=== PATIENT | female | born 1965 | race Two or more races ===

== ENCOUNTER 2024-01-04 11:29 | Emergency (ER) | payer OTHER, SELFPAY ==
[2024-01-04 11:35] VITALS: BMI 26.9
[2024-01-04 11:38] VITALS: BP 154/104
[2024-01-04 12:00] VITALS: BP 157/110
--- NOTE | 2024-01-04 12:00 | ED.GENMED ---
History of Present Illness
General
Chief Complaint: Musculo-Skeletal Complaint
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
Exam Limitations: none
Time Seen by Provider: 01/04/24 11:33
Travel History
Have you had any contact with someone who has COVID-19?: Unable to Answer
Do you have any symptoms of coronavirus? Fever > 100 degrees, chills, cough, shortness of breath, sore throat, loss of taste or smell, muscle aches, or headache?: Unable to Answer
History of Present Illness
History of Present Illness:
Patient fell off a chair trying to reach up for a cleaning of a room. Severe injury to the left lower leg. No other complaint or injury. No head injury no chest pain no abdominal pain
Past History
Past History
ED Past Medical History: HTN
Review of Systems
Review of Systems
All Other Systems: Not applicable
Respiratory: Reports no symptoms
Cardiac: Reports no symptoms
Phy Exam
Physical Exam
Physical Exam:
TRAUMA EXAM:
VITAL SIGNS: Vital signs reviewed, cooperative
DISTRESS: No active disease
EYES: Pupils reactive, no orbital trauma
NOSE: No deformity or epistaxis
FACE AND SCALP: No scalp or facial trauma, external canals no blood
NECK: Supple nontender
BACK: Back nontender, pelvis stable to compression
RESPIRATORY: No distress, breath sounds normal, no tender chest wall
CARDIAC: No murmur, pulses equal and strong
ABDOMEN: Soft nontender bowel sounds normal
SKIN: Skin intact no bleeding, color normal
EXTREMITIES: Shortening swelling tenderness to the distal femur on the left. No tenderness below the knee. Good distal pulses and color.
NEUROLOGICAL: Alert, oriented, no motor deficits
PSYCH: Mood affect normal
Course
Orders/Labs/Results
Orders:
Orders
01/04/24 11:37
Electrocardiogram (*1) Urgent
Reason for Study: Fatigue / Weakness
EKG- Treatment ONCE
01/04/24 11:52
Type+Screen Urgent
Complete Blood Count/With Diff Urgent
Comprehensive Metabolic Panel Urgent
Prothrombin Time Urgent
01/04/24 11:55
Femur, Left 2 View [CR Femur - Left Min 2 Vw] Urgent
Comment:
Reason For Exam: trauma
01/04/24 11:59
Fentanyl Citrate/Pf [Sublimaze] 50 mcg IV NOW STA
01/04/24 13:36
Fentanyl Citrate/Pf [Sublimaze] 50 mcg IV NOW STA
01/04/24 14:27
Fentanyl Citrate/Pf [Sublimaze] 100 mcg .ROUTE .STK-MED ONE
Fentanyl Citrate/Pf [Sublimaze] 50 mcg IV NOW STA
Abnormal Lab Results
01/04/24
11:52
Creatinine 0.5 L mg/dL
(0.6-1.0)
Glucose 130 H mg/dl
(70-99)
01/04/24 11:52
01/04/24 11:52
Vital Signs
Initial and Last Documented VS:
Initial Vital Signs
Temp Pulse Resp BP Pulse Ox
98.3 F 68 12 154/104 97
01/04/24 11:38 01/04/24 11:38 01/04/24 11:38 01/04/24 11:38 01/04/24 11:38
Last Documented Vital Signs
Temp Pulse Resp BP Pulse Ox
98.3 F 80 13 142/93 98
01/04/24 11:38 01/04/24 15:15 01/04/24 15:00 01/04/24 15:00 01/04/24 15:15
*Critical Care Note
Total Time (30-74mins, 75-104mins- exclusive of procedures): 45
Update Note
Update Note:
1240.... Discussed with orthopedics. Four-part fracture distal femur with possible quadriceps tendon involvement. They are not comfortable with management and recommend trauma center. Discussed the patient and family. Prefer [facility] or
[facility]. We will start this process
1430... Awaiting transport. Knee immobilizer was carefully placed. Neurovascular intact
1615.... All stable upon discharge
ED Attending Note
-
Portions of this chart may have been created with voice recognition software.� Occasional wrong word or��sound alike� substitutions may have occurred due to the inherent limitations of voice recognition software.
Discharge Plan
Departure
Patient Disposition: Acute Care Hospital
Date of Disposition: 01/04/24
Time of Disposition: 13:35
Discharge Problem:
Comminuted left femur fracture, Possible quadriceps tendon rupture
Referrals:
Анна Dallas MD [Family Provider] -
Hospital Transfer
Other hospital: [facility]
I certify that the patient requires transfer: Yes
Discussed case with accepting physician: maira
Reason for transfer: higher level of care
Interventions
Interventions:
*Risk Screen - Suicide Last Done: 01/04/24 11:43
*General Assessment Last Done: 01/04/24 11:43
*Neglect/Abuse Screening Last Done: 01/04/24 11:43
*ED COVID-19 Vaccine History Last Done: 01/04/24 11:43
ED-Musculoskeletal Assessment Last Done: 01/04/24 11:45
Discharge Date and Time
Print Language: [place]
[2024-01-04] MEDS: SUBLIMAZE 50 MCG IV ×3 (12:05→14:28)
[2024-01-04 12:10] LABS: % Basophils 0.6 % (0-2); % Eosinophils 2.5 % (0-6); % Immature Granulocytes 0.3 % (0-0.5); % Lymphocytes 23.1 % (20.5-51.1); % Neutrophils 68.5 % (42.2-75.2); Absolute Eosinophils 0.2 10^3/uL (0-0.7); Absolute Lymphocytes 1.6 10^3/uL (1.2-3.4); Absolute Monocytes 0.3 10^3/uL (0.1-0.6); Absolute Neutrophils 4.7 10^3/uL (1.4-6.5); Hematocrit 40.8 % (37.0-47.0); Hemoglobin 13.5 g/dL (12.0-16.0); Mean Corp Hgb Conc. 33.1 g/dL (33.0-37.0); Mean Corpuscular Hgb 30.8 pg (27.0-31.0); Mean Corpuscular Volume 92.9 fL (81.0-99.0); Mean Platelet Volume 10.4 fL (7.4-10.4); Nucleated Red Blood Cells % 0 %; Platelet Count 238 10^3/uL (130-400); Red Blood Cell Count 4.39 10^6/uL (4.20-5.40); Red Cell Dist. Width 13.9 % (11.5-14.5); White Blood Cell Count 6.8 10^3/uL (4.8-10.8)
[2024-01-04 12:15] LABS: ALT (SGPT) 18 U/L (0-35); AST (SGOT) 26 U/L (14-36); Albumin 4.5 g/dl (3.5-5.0); Alkaline Phosphatase 80 U/L (38-126); Blood Urea Nitrogen 10 mg/dl (7-17); Calcium 9.4 mg/dl (8.4-10.2); Carbon Dioxide 28 mmol/L (22-30); Chloride 103 mmol/L (98-107); Estimated Creatinine Clearance 97 ml/min; Glucose 130 mg/dl (70-99); INR 0.95; PT 12.5 Sec (11.4-14.6); Potassium 4.3 mmol/L (3.5-5.1); Sodium 136 mmol/L (135-145); Total Bilirubin 0.5 mg/dl (0.2-1.3); Total Protein 7.4 g/dl (6.3-8.2); eGFR > 60.00
[2024-01-04 14:52] VITALS: BP 154/94
[2024-01-04 15:00] VITALS: BP 142/93
== END 2024-01-04 16:16 | disposition short-term general hospital (02) ==
LOC: EMR 11:29
PROVIDERS: EMERGENCY PHYSICIAN Emergency Medicine; FAMILY PHYSICIAN Internal Medicine
DX: S72.92XA Unspecified fracture of left femur, initial encounter for closed fracture (principal); W07.XXXA Fall from chair, initial encounter; I10 Essential (primary) hypertension
CPT/HCPCS: 99283; 29505; 96374; 96376; 73552; 80053; 85025; 85610; 86850; 86900; 86901; 93005